=== PATIENT | female | born 1975 | race Caucasian/White ===

== ENCOUNTER 2017-04-21 20:39 | Emergency (ER) | payer BC, OTHER ==
[~2017-04-21] VITALS: Ht 157.5 cm; Wt 85.9 kg
--- NOTE | 2017-04-21 20:53 | NUR ---
Pt ambulated to room with steady gait. Pt c/o severe throat pain, swelling and painful swallowing. Pt also c/o chills. Airway patent, resp even and unlabored. Pt speaking full sentences. Pt resting in position of comfort for self. Awaiting further eval.
--- NOTE | 2017-04-21 21:05 | NUR ---
Dr. Choudhury at bedside for MSE
[2017-04-21] MEDS ORDERED: ACETAMINOPHEN 325 MG TABLET PO ONE (21:15)
[2017-04-21] MEDS ORDERED: IV NORMAL SALINE 1000 ML BAG IV ONE (21:15)
[2017-04-21 21:32] LABS: *URINE HCG, QUAL NEGATIVE (NEGATIVE)
--- NOTE | 2017-04-21 21:35 | NUR ---
Pt medicated for temp and discomfort. IV established, fluid bolus infusing freely to gravity. Pt resting in position of comfort for self.
[2017-04-21] MEDS ORDERED: ACETAMINOPHEN ES 500 MG TABLET ONE (21:37)
[2017-04-21 21:40] LABS: *BLOOD, URINE NEGATIVE (NEGATIVE); *COLOR,URINE DARK YELLOW (YELLOW); *KETONES,URINE 2+ (NEGATIVE); *PROTEIN,URINE 1+ (NEGATIVE); LEUKOCYTE ESTERASE ,URINE NEGATIVE (NEGATIVE); NITRITE, URINE NEGATIVE (NEGATIVE); PH,URINE 8.5 (5.0-8.0); UGLUCOSE NEGATIVE (NEGATIVE)
[2017-04-21 21:43] LABS: *BILIRUBIN,URIN NEGATIVE (NEGATIVE); *CLARITY,URINE HAZY (CLEAR)
[2017-04-21 21:45] LABS: BACTERIA,URINE FEW /HPF (NONE SEEN); MUCUS,URINE MANY /LPF (0-FEW); RBC,URINE 0-3 /HPF (0-3); SQUAMOUS EPITHELIAL CELL,UR MANY /HPF (NONE SEEN); WBC,URINE 0-3 /HPF (0-3)
--- NOTE | 2017-04-21 21:59 | NUR ---
xray at bedside
--- NOTE | 2017-04-21 22:06 | NUR ---
Pt cont to c/o severe pain. Dr. Choudhury notified and pt medicated, will monitor for effects of medication.
[2017-04-21] MEDS ORDERED: KETOROLAC TROMETHAMINE 30 MG INJ IVP ONE (22:15)
[2017-04-21] MEDS ORDERED: KETOROLAC TROMETHAMINE 30 MG INJ ONE (22:18)
[2017-04-21] MEDS ORDERED: AMOXICILLIN TRIHYDRATE 250 MG CAPSULE PO ONE (22:30)
--- NOTE | 2017-04-21 22:41 | NUR ---
Fluid bolus completed. Pt sts she is feeling better. Pt stable for discharge per MD. IV dc'd, catheter intact. Drsg applied. No problems noted to site. Pt given ACI. Pt verbalized understanding of dc instructions. Pt ambulated out of ER with steady gait to to wait for ride home
[2017-04-21 22:42] VITALS: BP 116/73
[2017-04-21] MEDS ORDERED: AMOXICILLIN TRIHYDRATE 250 MG CAPSULE ONE (22:42)
== END 2017-04-21 22:43 | disposition home or self-care (01) ==
LOC: ER 20:39
DX: J03.90 Acute tonsillitis, unspecified (principal); Z91.013 Allergy to seafood
CPT/HCPCS: 71010; 84703; A4663; J1885; J7030

== ENCOUNTER 2017-10-03 18:13 | Emergency (ER) | payer BC ==
[~2017-10-03] VITALS: Ht 157.5 cm; Wt 82.6 kg
[2017-10-03] MEDS ORDERED: KETOROLAC TROMETHAMINE 15 MG INJ IVP ONE (19:00)
[2017-10-03] MEDS ORDERED: IV NORMAL SALINE 1000 ML BAG IV ONE (19:00)
[2017-10-03] MEDS ORDERED: DEXAMETHASONE SOD PHOSPHATE 4 MG INJ IV ONE (19:00)
[2017-10-03 19:25] LABS: BASOPHILS % (AUTO) 0.9 % (0.0-2.0); EOSINOPHILS % (AUTO) 0.5 % (0.0-7.0); HEMATOCRIT 42.2 % (31.2-41.9); HEMOGLOBIN 14.2 g/dL (10.9-14.3); LYMPHOCYTES # (AUTO) 0.9 K/uL (20.0-40.0); LYMPHOCYTES % (AUTO) 20.4 % (20.5-51.5); MEAN CORPUSCULAR HEMOGLOBIN 28.4 uug (24.7-32.8); MEAN CORPUSCULAR HGB CONC 34 g/dL (32.3-35.6); MEAN CORPUSCULAR VOLUME 84.4 fL (75.5-95.3); MONOCYTES # (AUTO) 0.8 K/uL (2.0-10.0); MONOCYTES % (AUTO) 18.3 % (0.0-11.0); NEUTROPHILS # (AUTO) 2.7 K/uL (1.8-8.9); NEUTROPHILS % (AUTO) 59.9 % (38.5-71.5); PLATELET COUNT (AUTO) 416 K/uL (179-408); WHITE BLOOD COUNT (AUTO) 4.5 K/uL (3.8-11.8)
[2017-10-03 19:27] LABS: CREATININE 0.8 mg/dL (0.6-1.3); POTASSIUM 3.8 mmol/L (3.5-5.1)
[2017-10-03 19:33] LABS: BILIRUBIN,DIRECT 0.1 mg/dL (0.0-0.2); BILIRUBIN,TOTAL 0.2 mg/dL (0.2-1.0); TOTAL PROTEIN, SERUM 8.3 g/dL (6.4-8.2)
[2017-10-03] MEDS ORDERED: KETOROLAC TROMETHAMINE 15 MG INJ ONE (19:46)
[2017-10-03] MEDS ORDERED: DEXAMETHASONE SOD PHOSPHATE 4 MG INJ ONE (19:46)
[2017-10-03 20:07] LABS: LYMPHOCYTES % (MANUAL) 13 % (20-40); NEUTROPHILS % (MANUAL) 70 % (42-75)
[2017-10-03 20:08] LABS: MONOCYTES % (MANUAL) 17 % (2-10)
--- NOTE | 2017-10-03 21:08 | NUR ---
Patient discharged to home in stable conditon. Written and verbal after care instructions given. Patient verbalizes understanding of instructions.
[2017-10-03 21:10] VITALS: BP 109/66
== END 2017-10-03 21:12 | disposition home or self-care (01) ==
LOC: ER 18:14
DX: J45.909 Unspecified asthma, uncomplicated (principal); Z91.013 Allergy to seafood; Z90.49 Acquired absence of other specified parts of digestive tract
CPT/HCPCS: 36415; 71045; 80048; 80076; 83605; 84484; 84703; 85025; 87040 ×2; 96361; 96374; 96375; 99285; A4663; J1100; J1885; J7030; 70030-TC

== ENCOUNTER 2018-04-06 19:01 | Emergency (ER) | payer BC ==
[~2018-04-06] VITALS: Ht 157.5 cm; Wt 83.9 kg
--- NOTE | 2018-04-06 19:30 | NUR ---
Dr. Henao at bedside for MSE.
--- NOTE | 2018-04-06 19:36 | NUR ---
Patient discharged to home in stable conditon. Written and verbal after care instructions given. Patient verbalizes understanding of instructions. Pt ambulated out of ER with steady gait, no acute signs of distress, VSS, all belongings taken.
[2018-04-06 19:37] VITALS: BP 109/84
== END 2018-04-06 19:38 | disposition home or self-care (01) ==
LOC: ER 19:03
DX: S60.562A Insect bite (nonvenomous) of left hand, initial encounter (principal); S60.561A Insect bite (nonvenomous) of right hand, initial encounter; S80.862A Insect bite (nonvenomous), left lower leg, initial encounter; S80.861A Insect bite (nonvenomous), right lower leg, initial encounter; L08.9 Local infection of the skin and subcutaneous tissue, unspecified; W57.XXXA Bitten or stung by nonvenomous insect and other nonvenomous arthropods, initial encounter; Y93.89 Activity, other specified; Y92.89 Other specified places as the place of occurrence of the external cause; Y99.8 Other external cause status
CPT/HCPCS: A4663

== ENCOUNTER 2019-11-16 16:02 | Emergency (ER) | payer BC ==
[~2019-11-16] VITALS: Ht 157.5 cm; Wt 88.0 kg
[2019-11-16] MEDS ORDERED: LEVOFLOXACIN 750 MG TABLET PO ONE (17:00)
[2019-11-16] MEDS ORDERED: LEVOFLOXACIN 750 MG TABLET ONE (17:01)
--- NOTE | 2019-11-16 17:07 | NUR ---
Patient discharged to home in stable conditon. Written and verbal after care instructions given. Patient verbalizes understanding of instructions.pt walks in steady gait, breathing normally, no sign of distress. pt was treated in isolation room.
== END 2019-11-16 17:12 | disposition home or self-care (01) ==
LOC: ER 16:02
DX: J18.9 Pneumonia, unspecified organism (principal)
CPT/HCPCS: 71045; A4663